=== PATIENT | female | born 1985 | race Caucasian/White ===

== ENCOUNTER 2017-05-15 16:04 | Emergency (ER) | END 2017-05-15 22:28 | disposition home or self-care (01) ==

== ENCOUNTER 2018-02-14 08:46 | Emergency (ER) | END 2018-02-14 11:47 | disposition home or self-care (01) ==

== ENCOUNTER 2018-02-17 14:15 | Emergency (ER) | END 2018-02-17 16:46 | disposition home or self-care (01) ==

== ENCOUNTER 2018-04-16 16:11 | Emergency (ER) | payer MEDICAID ==
[~2018-04-16] VITALS: Ht 157.5 cm; Wt 56.3 kg
[~2018-04-16 16:11] MED LIST: CLIN300C10 PO; HYDR-4011 PO; IBUP-1542 PO; OMEP40CA6 PO
[2018-04-16 16:17] VITALS: BP 135/81; PULSE 100; RESP 18; Ht 157.5 cm; Wt 56.3 kg
[2018-04-16] MEDS ORDERED: ACET500C5 PO (20:20)
[2018-04-16] MEDS ORDERED: D-ME473S2 PO (20:20)
--- NOTE | 2018-04-16 20:23 | ERD ---
ER Documentation Chief Complaint Chief Complaint cough and sore throat x 3 weeks (+PREG TEST YESTERDAY) HPI 33 female presents with sore throat and cough. She had symptoms 2 weeks ago and was fine for a week. The cough is returned over the last week. She denies fevers, productive mucus, chest pain, shortness of breath. Patient had incidental positive test yesterday. Her last menstrual period was approximately 4 weeks ago. She denies abdominal pain or bleeding. She is a G5 para 2. ROS All systems reviewed and are negative except as per history of present illness. Medications Home Meds Active Scripts Acetaminophen* (Tylophen*) 500 Mg Capsule, 1 CAP PO Q6H PRN for PAIN AND OR ELEVATED TEMP, #15 CAP Prov:PHILOMENA SUTHERLAND MD 04/16/18 Dextromethorphan Hb-Promethazine Hcl* (Promethazine DM* Syrup) 473 Ml Syrup, 5 ML PO Q6 PRN for COUGH for 5 Days, ML Prov:PHILOMENA SUTHERLAND MD 04/16/18 Hydrocodone/Acetaminophen ([place] 5-325 Tablet) 1 Each Tablet, 1 TAB PO Q6H PRN for PAIN, #12 TAB Prov:AHMET TREADWELLSTOLOS Neel. DO 05/15/17 Ibuprofen* (Motrin*) 600 Mg Tab, 600 MG PO Q8, #30 TAB Prov:LEKKOSAHMETSTOLOS A. DO 05/15/17 Omeprazole* (Omeprazole*) 40 Mg Capsule.dr, 40 MG PO DAILY, #14 CAP Prov:AHMET TREADWELLSTHARINDER Shaikh. DO 05/15/17 Ibuprofen* (Motrin*) 600 Mg Tab, 600 MG PO Q6H PRN for PAIN AND OR ELEVATED TEMP, #30 TAB Prov:MARILEE LUGO MD 06/28/15 Clindamycin Hcl* (Clindamycin Hcl*) 300 Mg Capsule, 300 MG PO TID for 10 Days, CAP Prov:MARILEE LUGO MD 06/28/15 Allergies Allergies: Coded Allergies: Penicillins (Verified Allergy, Unknown, 08/25/14) PMhx/Soc History of Surgery: Yes (breast implants) Anesthesia Reaction: No Hx Neurological Disorder: No Hx Respiratory Disorders: No Hx Cardiac Disorders: No Hx Psychiatric Problems: No Hx Miscellaneous Medical Probl: No Hx Alcohol Use: No Hx Substance Use: No Hx Tobacco Use: No Smoking Status: Never smoker FmHx Family History: No diabetes, No coronary disease, No other Physical Exam Vitals Vital Signs Date Temp Pulse Resp B/P (MAP) Pulse Ox O2 O2 Flow FiO2 Time Delivery Rate 04/16/18 97.7 100 18 135/81 98 16:17 (99) Physical Exam Const: No acute distress Head: Atraumatic Eyes: Normal Conjunctiva ENT: Normal External Ears, Nose and Mouth. TMs and oropharynx normal. Neck: Full range of motion. No meningismus. Resp: Clear to auscultation bilaterally. Dry cough without rales, wheezing or retractions. Cardio: Regular rate and rhythm, no murmurs Abd: Soft, non tender, non distended. Normal bowel sounds Skin: No petechiae or rashes Back: No midline or flank tenderness Ext: No cyanosis, or edema Neur: Awake and alert Psych: Normal Mood and Affect Procedures/MDM Patient presents with URI symptoms for the last week. Patient has no signs of hypoxemia, respiratory distress or signs of pneumonia. Patient has positive test at home. She is probably barely over 4 weeks she states her menstrual periods are regular giving a good estimate of dates.. Patient has no abdominal pain or bleeding. Ultrasound was offered but patient agrees that it is too early and since she is not having symptoms of bleeding or pain suspicion for ectopic or complications of currently low but patient will agree to follow-up with primary doctor return for pain, bleeding, new or worsening symptoms. Will prescribe Tylenol, promethazine DM recommendations for return precautions primary care follow-up and she should continue her vitamins. The patient was stable with no new complaints during the ER course. Clinically, there is no current evidence to suggest meningitis, sepsis, acute abdomen, pneumonia, stroke, acute coronary syndrome, pulmonary embolism, aortic dissection or any other emergent condition appearing to require further evaluation or hospitalization. Patient counseled regarding my diagnostic impression and care plan. Prior to discharge all questions answered. Pt agrees with treatment plan and understands strict return precautions. Pt is instructed to follow up with primary care provider within 24-48 hours. Precautionary instructions provided including instructions to return to the ER if not improving or for any worsening or changing symptoms or concerns. Departure Diagnosis: Primary Impression: Weeks of gestation: less than 8 weeks Qualified Codes: Z3A.01 - Less than 8 weeks gestation of Additional Impression: Cough Condition: Stable Patient Instructions: , New Dx, Uri, Viral, No Abx (Adult) Referrals: [facility] [place] [address] [facility] [address] [place] [address] OFFICE FAX , [facility] [address] [place] [address] [address] [facility] [address] [place] [address] [address], [facility] [address] [facility], [facility] [address], [facility] [address] [address] [facility] [address] [place] [address] [facility] [address] [place] [address] [address] [facility] [address] - KENYON HOWARD [address] [facility], [facility] [address] [address] [place], [place] [address] [facility]. [address], [facility] [address] [address] [facility] [address] [place], [place] [id number] Additional Instructions: Likely viral illness should resolve within a week. Recheck with primary doctor for . Return for abdominal pain, bleeding, fevers, new or worsening symptoms. Continue vitamins. PHLIOMENA SUTHERLAND MD Apr 16, 2018 20:23
== END 2018-04-16 20:47 | disposition home or self-care (01) ==
LOC: FTE 16:11
DX: O99.89 Other specified diseases and conditions complicating pregnancy, childbirth and the puerperium (principal); R05 Cough; Z3A.01 Less than 8 weeks gestation of pregnancy
CPT/HCPCS: 99282

== ENCOUNTER 2018-05-07 19:34 | Emergency (ER) | payer MEDICAID ==
[~2018-05-07] VITALS: Ht 157.5 cm; Wt 57.2 kg
[~2018-05-07 19:34] MED LIST changes: +ACET500C5 PO; +D-ME473S2 PO
[2018-05-07 20:23] VITALS: BP 109/72; PULSE 82; RESP 18; Ht 157.5 cm; Wt 57.2 kg
[2018-05-08] MEDS ORDERED: CEPH-443 PO (00:54)
--- NOTE | 2018-05-08 01:20 | ERD ---
ER Documentation Chief Complaint Chief Complaint scanty vag bleed w/cramps, 7 weeks HPI 33-year-old female 8 3 who is 7 weeks presents to the emergency department complaining of mild crampy pelvic pain for the past couple days. States that she has very mild vaginal bleeding. Patient states that she sees he r PENSION ADVISER at the [facility] and her last visit was this morning and everything was normal however she starts to develop the pain again therefore she came to the ER. Patient denies fevers, dysuria nausea vomiting ROS All systems reviewed and are negative except as per history of present illness. Medications Home Meds Active Scripts Cephalexin* (Keflex*) 500 Mg Capsule, 500 MG PO BID for 5 Days, CAP Prov:BABAR MCCORD PA-C 05/08/18 Acetaminophen* (Tylophen*) 500 Mg Capsule, 1 CAP PO Q6H PRN for PAIN AND OR ELEVATED TEMP, #15 CAP Prov:PHILOMENA SUTHERLAND MD 04/16/18 Dextromethorphan Hb-Promethazine Hcl* (Promethazine DM* Syrup) 473 Ml Syrup, 5 ML PO Q6 PRN for COUGH for 5 Days, ML Prov:PHILOMENA SUTHERLAND MD 04/16/18 Hydrocodone/Acetaminophen ([place] 5-325 Tablet) 1 Each Tablet, 1 TAB PO Q6H PRN for PAIN, #12 TAB Prov:AHMET TREADWELLSTOLOS A. DO 05/15/17 Ibuprofen* (Motrin*) 600 Mg Tab, 600 MG PO Q8, #30 TAB Prov:LEKKOSAPOSTOLOS A. DO 05/15/17 Omeprazole* (Omeprazole*) 40 Mg Capsule.dr, 40 MG PO DAILY, #14 CAP Prov:LEKKOS,AHMETSTOLOS A. DO 05/15/17 Ibuprofen* (Motrin*) 600 Mg Tab, 600 MG PO Q6H PRN for PAIN AND OR ELEVATED TEMP, #30 TAB Prov:MARILEE LUGO MD 06/28/15 Clindamycin Hcl* (Clindamycin Hcl*) 300 Mg Capsule, 300 MG PO TID for 10 Days, CAP Prov:MARILEE LUGO MD 06/28/15 Allergies Allergies: Coded Allergies: Penicillins (Verified Allergy, Unknown, 08/25/14) PMhx/Soc Medical and Surgical Hx: pt denies Medical Hx, pt denies Surgical Hx History of Surgery: No Anesthesia Reaction: No Hx Neurological Disorder: No Hx Respiratory Disorders: No Hx Cardiac Disorders: No Hx Psychiatric Problems: No Hx Miscellaneous Medical Probl: Yes (2 MISCARRIAGES) Hx Alcohol Use: No Hx Substance Use: No Hx Tobacco Use: No Physical Exam Vitals Vital Signs Date Temp Pulse Resp B/P (MAP) Pulse Ox O2 O2 Flow FiO2 Time Delivery Rate 05/07/18 97.4 82 18 109/72 99 20:23 (84) Physical Exam Const: No acute distress Head: Atraumatic Eyes: Normal Conjunctiva ENT: Normal External Ears, Nose and Mouth. Neck: Full range of motion. No meningismus. Resp: Clear to auscultation bilaterally Cardio: Regular rate and rhythm, no murmurs Abd: Soft, non tender, non distended. Normal bowel sounds Skin: No petechiae or rashes Back: No midline or flank tenderness Ext: No cyanosis, or edema Neur: Awake and alert Psych: Normal Mood and Affect Result Diagram: 05/07/180 Results 24 hrs Laboratory Tests Test 05/07/18 23:20 White Blood Count 9.4 10^3/ul Red Blood Count 4.44 10^6/ul Hemoglobin 12.9 g/dl Hematocrit 39.5 % Mean Corpuscular Volume 89.0 fl Mean Corpuscular Hemoglobin 29.1 pg Mean Corpuscular Hemoglobin Concent 32.7 g/dl Red Cell Distribution Width 12.9 % Platelet Count 329 10^3/UL Mean Platelet Volume 9.2 fl Immature Granulocytes % 0.300 % Neutrophils % 61.8 % Lymphocytes % 28.1 % Monocytes % 6.8 % Eosinophils % 2.5 % Basophils % 0.5 % Nucleated Red Blood Cells % 0.0 /100WBC Immature Granulocytes # 0.030 10^3/ul Neutrophils # 5.8 10^3/ul Lymphocytes # 2.6 10^3/ul Monocytes # 0.6 10^3/ul Eosinophils # 0.2 10^3/ul Basophils # 0.1 10^3/ul Nucleated Red Blood Cells # 0.0 10^3/ul Urine Color YELLOW Urine Clarity SLIGHTLY CLOUDY Urine pH 5.0 Urine Specific [place] 1.027 Urine Ketones TRACE mg/dL Urine Nitrite NEGATIVE mg/dL Urine Bilirubin NEGATIVE mg/dL Urine Urobilinogen NEGATIVE mg/dL Urine Leukocyte Esterase NEGATIVE [place]/ul Urine Microscopic RBC 3 /HPF Urine Microscopic WBC 1 /HPF Urine Squamous Epithelial Cells FEW /HPF Urine Bacteria FEW /HPF Urine Mucus MODERATE /HPF Urine Hemoglobin NEGATIVE mg/dL Urine Glucose 1+ mg/dL Urine Total Protein NEGATIVE mg/dl Beta HCG, Quantitative 76058.0 mIU/ml Procedures/MDM 33-year-old female 7 weeks presents with mild vaginal bleeding for the past 2 days. OB ultrasound was done and showed a single live uterine gestation at 6 weeks, urinalysis shows signs of trace leukocyte esterase therefore she was given for Keflex. Patient is hemato-stable to be discharged home to follow-up with an PENSION ADVISER with close follow-up. I have given her strict return precautions return to emergency room for any worsening surgery she understands reasons plan Beta-hCG 53,264 OB US 1. Single live intrauterine with an estimated gestational age of 6 weeks 4 days, the estimated date of delivery 12/27/2018. 2. Equivocal crescentic hypoechoic area adjacent to the gestational sac possibly a subarachnoid hemorrhage of approximately 0.6 x 0.2 cm. 3. Unremarkable left ovary, the right ovary is not visualized. Departure Diagnosis: Primary Impression: Vaginal bleeding in patient at less than 20 weeks gestation Condition: Stable Patient Instructions: Possible Miscarriage (Threatened ) Additional Instructions: Visite a menchaca gail marcus para un EXAMEN.Regrese a estas instalaciones si no se mejora uche esperbamos o uche le dijimos. [place] toda la medicina [facility] y uche se le indic. BABAR MCCORD PA-C May 08, 2018 01:20
== END 2018-05-08 01:03 | disposition home or self-care (01) ==
LOC: FTE 19:34
DX: O20.9 Hemorrhage in early pregnancy, unspecified (principal); R10.2 Pelvic and perineal pain; Z3A.01 Less than 8 weeks gestation of pregnancy
CPT/HCPCS: 36415; 76801; 81001; 84702; 85025; 86900; 86901; 87086; Z7502; 81003

== ENCOUNTER 2018-07-16 03:25 | Emergency (ER) | payer MEDICAID ==
[~2018-07-16] VITALS: Wt 58.6 kg
[~2018-07-16 03:25] MED LIST changes: +CEPH-443 PO
[2018-07-16 03:29] VITALS: BP 105/75; PULSE 85; RESP 18
--- NOTE | 2018-07-16 04:54 | ERD ---
ER Documentation Chief Complaint Chief Complaint 16WEEKS, 6 DAYS PG; CRAMPING X'S 2 DAYS HPI 33-year-old female, A3 with EGA 17 weeks by LMP 03/17/19, presents to the emergency department, complaining of 2 days with intermittent episodes of pelvic pain, like contractions, the patient denies vaginal bleeding, no fever or chills. The patient has established care at [facility] All systems reviewed and are negative except as per history of present illness. Medications Home Meds Active Scripts Nitrofurantoin Monohyd Macrocr* (Macrobid*) 100 Mg Capsr, 100 MG PO BID for 7 Days, #14 CAP Prov:PAULO STEWART MD 07/16/18 Cephalexin* (Keflex*) 500 Mg Capsule, 500 MG PO BID for 5 Days, CAP Prov:BABAR MCCORD PA-C 05/08/18 Acetaminophen* (Tylophen*) 500 Mg Capsule, 1 CAP PO Q6H PRN for PAIN AND OR ELEVATED TEMP, #15 CAP Prov:PHILOMENA SUTHERLAND MD 04/16/18 Dextromethorphan Hb-Promethazine Hcl* (Promethazine DM* Syrup) 473 Ml Syrup, 5 ML PO Q6 PRN for COUGH for 5 Days, ML Prov:PHILOMENA SUTHERLAND MD 04/16/18 Hydrocodone/Acetaminophen ([place] 5-325 Tablet) 1 Each Tablet, 1 TAB PO Q6H PRN for PAIN, #12 TAB Prov:AHMET TREADWELLSTOLOS AMarshall DO 05/15/17 Ibuprofen* (Motrin*) 600 Mg Tab, 600 MG PO Q8, #30 TAB Prov:LEKKOS,APOSTOLOS A. DO 05/15/17 Omeprazole* (Omeprazole*) 40 Mg Capsule.dr, 40 MG PO DAILY, #14 CAP Prov:LEKRYSTAOSAHMETSTOLOS A. DO 05/15/17 Ibuprofen* (Motrin*) 600 Mg Tab, 600 MG PO Q6H PRN for PAIN AND OR ELEVATED TEMP, #30 TAB Prov:MARILEE LUGO MD 06/28/15 Clindamycin Hcl* (Clindamycin Hcl*) 300 Mg Capsule, 300 MG PO TID for 10 Days, CAP Prov:MARILEE LUGO MD 06/28/15 Allergies Allergies: Coded Allergies: Penicillins (Verified Allergy, Unknown, 08/25/14) PMhx/Soc Medical and Surgical Hx: pt denies Surgical Hx History of Surgery: No Anesthesia Reaction: No Hx Neurological Disorder: No Hx Respiratory Disorders: No Hx Cardiac Disorders: No Hx Psychiatric Problems: No Hx Miscellaneous Medical Probl: Yes (2 MISCARRIAGES) Hx Alcohol Use: No Hx Substance Use: No Hx Tobacco Use: No Smoking Status: Never smoker FmHx Family History: No diabetes, No coronary disease Physical Exam Vitals Vital Signs Date Temp Pulse Resp B/P (MAP) Pulse Ox O2 O2 Flow FiO2 Time Delivery Rate 07/16/18 97.8 85 18 105/75 100 03:29 (85) Physical Exam Const: No acute distress Head: Atraumatic Eyes: Normal Conjunctiva ENT: Normal External Ears, Nose and Mouth. Neck: Full range of motion. No meningismus. Resp: Clear to auscultation bilaterally Cardio: Regular rate and rhythm, no murmurs Abd: Soft, non tender, non distended. Normal bowel sounds Skin: No petechiae or rashes Back: No midline or flank tenderness Ext: No cyanosis, or edema Neur: Awake and alert Psych: Normal Mood and Affect Result Diagram: 07/16/1815 07/16/1815 Results 24 hrs Laboratory Tests Test 07/16/18 05:10 07/16/18 05:15 Urine Color YELLOW Urine Clarity SLIGHTLY CLOUDY Urine pH 5.0 Urine Specific [place] 1.020 Urine Ketones NEGATIVE mg/dL Urine Nitrite NEGATIVE mg/dL Urine Bilirubin NEGATIVE mg/dL Urine Urobilinogen NEGATIVE mg/dL Urine Leukocyte Esterase 1+ [place]/ul Urine Microscopic RBC 2 /HPF Urine Microscopic WBC 6 /HPF Urine Squamous Epithelial Cells FEW /HPF Urine Bacteria FEW /HPF Urine Mucus MANY /HPF Urine Hemoglobin NEGATIVE mg/dL Urine Glucose NEGATIVE mg/dL Urine Total Protein NEGATIVE mg/dl White Blood Count 10.8 10^3/ul Red Blood Count 4.54 10^6/ul Hemoglobin 13.3 g/dl Hematocrit 40.0 % Mean Corpuscular Volume 88.1 fl Mean Corpuscular Hemoglobin 29.3 pg Mean Corpuscular Hemoglobin Concent 33.3 g/dl Red Cell Distribution Width 12.8 % Platelet Count 310 10^3/UL Mean Platelet Volume 9.3 fl Immature Granulocytes % 0.700 % Neutrophils % 72.9 % Lymphocytes % 17.9 % Monocytes % 6.3 % Eosinophils % 1.8 % Basophils % 0.4 % Nucleated Red Blood Cells % 0.0 /100WBC Immature Granulocytes # 0.080 10^3/ul Neutrophils # 7.9 10^3/ul Lymphocytes # 1.9 10^3/ul Monocytes # 0.7 10^3/ul Eosinophils # 0.2 10^3/ul Basophils # 0.0 10^3/ul Nucleated Red Blood Cells # 0.0 10^3/ul Sodium Level 139 mmol/L Potassium Level 3.6 mmol/L Chloride Level 103 mmol/L Carbon Dioxide Level 24 mmol/L Anion Gap 12 Blood Urea Nitrogen 7 mg/dl Creatinine 0.41 mg/dl Est Glomerular Filtrat Rate mL/min > 60 mL/min Glucose Level 79 mg/dl Calcium Level 9.3 mg/dl Current Medications Medications Dose Sig/Candelario Start Time Status Last (Trade) Ordered Route PRN Stop Time Admin Dose Reason Admin Sodium 500 ml @ Q1H STAT 07/16/18 DC 07/16/18 Chloride 500 mls/hr IV 04:59 07/16/18 05:20 05:58 650 mg ONCE STAT 07/16/18 DC 07/16/18 Acetaminophen PO 04:59 07/16/18 05:22 (Tylenol 05:18 Tab) Patient: TYSHAWN TOPETE : 1985 Age: 33 Sex: F MR #: [id number] DOS: 07/16/18 0459 Ordering MD: PAULO STEWART MD Location: [facility] Room/Bed: PROCEDURE: US OB. CLINICAL INDICATION: Pelvic pain TECHNIQUE: Multiple sonographic images of the pelvis were obtained. The images were reviewed on a PACS workstation. COMPARISON: None FINDINGS: There is a single live intrauterine gestation. Cardiac activity is present with 137 beats per minute. Cephalic presentation. Measurements were made in order to determine age. The results are as follows: BPD = 3.75 cm 17 weeks 3 days HC = 13.75 cm 17 weeks 1 day AC = 11.55 cm 17 weeks 2 days FL = 2.27 cm 16 weeks 6 days Estimated gestational age of approximately 17 weeks 1 day. The estimated date of delivery is 12/23/2018. The EFW = 181 grams. No anatomic abnormalities demonstrated. The placenta is anterior. No evidence of previa or abruption. Amniotic fluid volume appears adequate, MVP 4.1 cm. IMPRESSION: Single live intrauterine gestation of approximately 17 weeks 1 day. Estimated date of delivery 12/23/2018. No apparent complications. Procedures/MDM Vital signs stable, Physical exam unremarkable. Differential diagnosis include but not limited to: Appendicitis, gastroenteritis, UTI, threatening , incomplete versus complete , placental abruption, placenta previa. Physical examination and clinical presentation most likely consistent with UTI. During the ED course the patient remained hemodynamically stable and asymptomatic. Results and clinical impression discussed with patient who agrees with management. The patient is stable to be treated outpatient and will be discharged home with close monitoring and follow-up in 2 days with her primary physician. Bed rest and pelvic rest recommended until further medical evaluation. The patient was instructed regarding the outcomes and the potential complications like severe bleeding and . If the patient presents severe bleeding or pain, she was instructed to return to the hospital immediately. Disclaimer: Inadvertent spelling and grammatical errors are likely due to EHR/dictation software use and do not reflect on the overall quality of patient care. Also, please note that the electronic time recorded on this note does not necessarily reflect the actual time of the patient encounter. Departure Diagnosis: Primary Impression: Uterine contractions during Additional Impression: UTI (urinary tract infection) Condition: Stable Additional Instructions: Thank you very much for allowing us to participate in your care. Your health and safety is our top priority at [facility]. Call your primary care doctor TOMORROW for an appointment during the next 2-4 days and bring all the information and medications prescribed. Have prescriptions filled and follow precisely the directions on the label. If the symptoms get worse and your provider is unavailable, return to the Emergency Department immediately. PAULO STEWART MD Jul 16, 2018 04:54
[2018-07-16] MEDS ORDERED: ACETAMINOPHEN 325 MG TAB PO STA (04:59)
[2018-07-16] MEDS ORDERED: SOD CHLORIDE 0.9% 500 ML IV STA (04:59)
[2018-07-16] MEDS ORDERED: NITR-58 PO (06:04)
== END 2018-07-16 06:20 | disposition home or self-care (01) ==
LOC: FTE 03:25
DX: O26.892 Other specified pregnancy related conditions, second trimester (principal); O62.4 Hypertonic, incoordinate, and prolonged uterine contractions; O23.42 Unspecified infection of urinary tract in pregnancy, second trimester; R10.2 Pelvic and perineal pain; Z3A.17 17 weeks gestation of pregnancy
CPT/HCPCS: 76805; 80048; 81001; 85025; 87086; J7040; Z7610; 36415